=== PATIENT | female | born 1960 | race Caucasian/White ===

== ENCOUNTER → 2016-11-22 | Outpatient (CLI) | payer OTHER | LOC: CIMAGING 08:46 | PROVIDERS: ATTEND Internal Medicine | DX: R05 Cough (principal) | CPT/HCPCS: 71020-PO ==

== ENCOUNTER → 2017-03-21 | Outpatient (CLI) | payer OTHER | LOC: CIMAGING 08:07 | PROVIDERS: ATTEND Internal Medicine | DX: Z12.31 Encounter for screening mammogram for malignant neoplasm of breast (principal); Z80.3 Family history of malignant neoplasm of breast | CPT/HCPCS: G0202 ==

== ENCOUNTER → 2017-04-06 | Outpatient (CLI) | payer OTHER | LOC: FIMAGING 12:36 | PROVIDERS: ATTEND Internal Medicine | DX: N60.01 Solitary cyst of right breast (principal); N60.02 Solitary cyst of left breast ==